=== PATIENT | female | born 2000 | race Caucasian/White ===

== ENCOUNTER 2024-10-03 10:05 | Emergency (ER) | payer OTHER ==
[~2024-10-03] VITALS: Ht 162.6 cm; Wt 73.0 kg
[2024-10-03] MEDS ORDERED: SYEDA 28 TABLE1 EACH PO (11:34)
[2024-10-03] MEDS ORDERED: MYCOPHENOLATE500 MG PO (11:34)
[2024-10-03 12:21] LABS: BASOPHILS 0.3 % (0-2); EOSINOPHILS 0.6 % (0-6); HEMATOCRIT 36.6 % (35.0-50.0); HEMOGLOBIN 12.9 g/dL (12.0-18.0); LYMPHOCYTES 26.8 % (24-44); MCH 30.1 (27-36); MCHC 35.3 g/dl (30-36); MCV 85.2 fl (81-99); MONOCYTES 3.1 % (0-12); NEUTROPHILS 69.2 % (39-80); PLATELET COUNT 376 K/uL (140-440); RDW 12.5 (10.5-15.0)
[2024-10-03] MEDS ORDERED: CEFPODOXIME PR200 MG PO (14:18)
[2024-10-03] MEDS ORDERED: PREDNISONE20 MG PO (14:19)
[2024-10-03] MEDS ORDERED: predniSONE 20 MG TAB PO ONE (14:30)
[2024-10-03 14:50] VITALS: BP 124/87
== END 2024-10-03 14:51 | disposition home or self-care (01) ==
LOC: ED 10:05
PROVIDERS: Emergency Medicine
DX: J32.9 Chronic sinusitis, unspecified (principal); Z79.899 Other long term (current) drug therapy
CPT/HCPCS: 36415; 70496; 84703; 85025; 99284-25; J7512; Q9967